=== PATIENT | male | born 1965 | race Caucasian/White ===

== ENCOUNTER 2018-06-25 12:27 | Emergency (ER) | payer BC, SELFPAY ==
[2018-06-25 12:28] VITALS: BP 123/75; PULSE 89; RESP 18; TEMP 36.9; O2SAT 97; BMI 23.5
[2018-06-25] MEDS: Meclizine HCl 25 MG Tablet PO (13:20)
[2018-06-25 13:35] LABS: Absolute Lymphocyte Count 2.94 X10^3/ul (0.83-4.51); Absolute Neutrophil Count 3.6 X10^3/uL (2.0-7.7); Basophil# 0.03 X10^3/uL; Basophil% 0.4 % (0-1); Eosinophil# 0.29 X10^3/uL; Eosinophils% 3.8 % (0-5); Hematocrit 41.7 % (40-54); Hemoglobin 14.2 g/dl (13.0-16.5); Lymphocyte # 2.94 X10^3/ul (4.0); Lymphocyte % 38.8 % (19-41); Mean Corp Hgb Conc 34.1 g/gl (32-36); Mean Corpuscular Hgb 32.9 pg (27.0-32.0); Mean Corpuscular Volume 96.8 fL (80-94); Mean Platelet Vol. 9.7 fl (6.2-12.0); Monocyte# 0.74 X10^3/uL; Monocyte% 9.8 % (0-10); Neutrophil # 3.56 X10^3/uL (2.7-7.7); Neutrophil % 47.1 % (47-70); Platelet Count 193 K/mm3 (150-450); RBC Distribution Width SD 49.7 fl (35.1-43.9); Red Blood Count 4.31 M/mm3 (4.6-6.2); White Blood Count 7.6 K/mm3 (4.4-11.0)
[2018-06-25 13:38] LABS: POSITIVE COUNT NO; POSITIVE DIFFERENTIAL NO; POSITIVE MORPHOLOGY YES
[2018-06-25 13:39] LABS: Differential Indicated SCAN CRITERIA MET
[2018-06-25 13:44] LABS: Anion Gap 9 (5-15); BUN 11 mg/dL (7-18); BUN/Creat Ratio 16.3 RATIO (10-20); Calcium,Total 8.5 mg/dL (8.5-10.1); Chloride 108 mmol/L (98-107); Creatinine, Serum 0.67 mg/dL (0.70-1.30); EST Glomerular Filtration Rate 131 mL/min (>60); Est Glom Filt Rate - Afr Amer 159 mL/min (>60); Estimated Creatinine Clearance 119.21 ml/min; Glucose 90 mg/dL (74-106); Potassium 4.1 mmol/L (3.5-5.1); Sodium Level 142 mmol/L (136-145)
[2018-06-25 14:00] LABS: Reactive Lymphocyte 1+
[2018-06-25] MEDS: 0.9% Normal Saline 1,000 ML 150 ML IV (14:00)
--- NOTE | 2018-06-25 15:00 | ED.VISSUMM ---
- ER Visit Summary Date of Service: 06/25/18 Chief Complaint: Dizzy History of Present Illness: The patient is a 53 M who is had dizziness [place] He felt nauseated and sweaty immediately after. He was able to walk okay he did have his drive home. He states this morning he feels like his brain is is not clear. Physical Examination: Vital signs are unremarkable. Head neck examination reveals mild horizontal nystagmus. Heart is regular rate and rhythm. Lung sounds are clear. Abdomen is soft nontender. Test Results: CT head is unremarkable. EKG is sinus at 75 with no sign of acute ischemia. CBC and chemistry studies are normal. Emergency Department Course and Treatment: Patient is given IV fluids as well as p.o. Antivert. He is observed ambulating up and down the [place] and feels improved. He will be discharged home with family at this time. Treatment Plan: [] Disposition: Discharge Impression: Vertigo, improved This note was generated with [employer] dictation software. It may contain incorrect words, spelling, and punctuation that were not noted in review of the chart prior to signing ED Disposition - Plan for ED Patient: Chief Complaint: Dizziness Referrals: Care Physician,No Primary [Primary Care Provider] -
--- NOTE | 2018-06-25 15:03 | ED.DCSUM_ITS ---
- ER Visit Summary Date of Service: 06/25/18 Chief Complaint: Dizzy History of Present Illness: The patient is a 53 M who is had dizziness [place]. He felt nauseated and sweaty immediately after. He was able to walk okay he did have his drive home. He states this morning he feels like his brain is is not clear. Physical Examination: Vital signs are unremarkable. Head neck examination reveals mild horizontal nystagmus. Heart is regular rate and rhythm. Lung sounds are clear. Abdomen is soft nontender. Test Results: CT head is unremarkable. EKG is sinus at 75 with no sign of acute ischemia. CBC and chemistry studies are normal. Emergency Department Course and Treatment: Patient is given IV fluids as well as p.o. Antivert. He is observed ambulating up and down the [place] and feels improved. He will be discharged home with family at this time. Treatment Plan: [] Disposition: Discharge Impression: Vertigo, improved This note was generated with [employer] dictation software. It may contain incorrect words, spelling, and punctuation that were not noted in review of the chart prior to signing ED Disposition - Plan for ED Patient: Chief Complaint: Dizziness Referrals: Care Physician,No Primary [Primary Care Provider] -
--- NOTE | 2018-06-25 15:03 | ED.DEP ---
ED Disposition - Plan for ED Patient: Disposition: Home or Assisted Living Chief Complaint: Dizziness Instructions: ED Vertigo Unspecified Referrals: Fast,Imelda, DO [NON-STAFF] - As Needed
== END 2018-06-25 15:12 | disposition home or self-care (01) ==
PROVIDERS: Emergency Provider Emergency Medicine
DX: R42 Dizziness and giddiness (principal); Z72.0 Tobacco use
CPT/HCPCS: 70450; 80048; 85025; 93005; 96360; 96361; 99284; J7030; J7040; A4216